=== PATIENT | female | born 1970 | race Caucasian/White ===

== ENCOUNTER 2018-08-25 19:48 | Emergency (ER) | payer OTHER ==
[2018-08-25] MEDS: KETOROLAC 30 MG INJ IM (22:16)
[2018-08-25] MEDS: DEXAMETHASONE 10 MG/ML 1 ML INJ IM (22:16)
== END 2018-08-25 23:23 | disposition home or self-care (01) ==
LOC: FTE 23:23
DX: M54.5 Low back pain (principal)
CPT/HCPCS: 81025; 96372; 99284-25